=== PATIENT | female | born 1985 | race Hispanic/Latino ===

== ENCOUNTER 2017-10-04 14:15 | Outpatient (CLI) | payer BC ==
[2017-10-04 15:15] LABS: Hematocrit 41.3 % (36.0-47.0); Mean Platelet Volume 8.2 fL (7.4-10.4); White Blood Cell (WBC) Count 11.5 thou/uL (4.8-10.8)
== END 2017-10-04 14:16 | disposition home or self-care (01) ==
LOC: LABBT 14:15
PROVIDERS: ATTEND Obstetrics & Gynecology
DX: Z01.812 Encounter for preprocedural laboratory examination (principal); K80.20 Calculus of gallbladder without cholecystitis without obstruction
CPT/HCPCS: 84703; 85027; 86850; 86900; 86901

== ENCOUNTER 2017-10-04 15:30 | Inpatient (IN) | payer BC ==
--- NOTE | 2017-10-03 16:26 | HP ---
PRESENTING COMPLAINT: Chronic pelvic pain, deep dyspareunia with moderate pelvic prolapse. SCHEDULED PROCEDURE: Total laparoscopic hysterectomy, bilateral salpingectomy. HISTORY OF PRESENT ILLNESS: Ms. Hurley is a 32-year-old 2, para 2, status post x2, wh o was on Mirena. The patient has persistent dysmenorrhea and abdominal pain. She also has significa nt dyspareunia which is deep. She desires definitive surgical management. OBSTETRIC AND GYNECOLOGIC HISTORY: Noted, negative Pap smear in June. PAST MEDICAL HISTORY: Denies. PAST SURGICAL HISTORY: None. ALLERGIES: Denies. MEDICATIONS: None. SOCIAL HISTORY: Denies tobacco, alcohol, IV drug abuse. FAMILY HISTORY: Significant for history of malignant neoplasm of the ovary and uterus in the patient 's mother. PHYSICAL EXAMINATION: GENERAL: female, 5 foot 6, 233, BMI 37. VITAL SIGNS: Blood pressure 130/80. HEENT: Within normal limits. LUNGS: Clear to auscultation bilaterally. HEART: Regular rhythm. BREASTS: No masses bilaterally. ABDOMEN: Soft and nontender, without rebound or guarding. PELVIC: Vulva without lesions. Vagina without discharge. Cervix is approximately 2.5 cm from the i ntroitus. Uterus is anteverted, tender on exam without adnexal masses bilaterally, IUD in situ. EXTREMITIES: Without clubbing, cyanosis, or edema. LABORATORY DATA: Pap smear within normal limits, negative, high risk HPV. IMPRESSION: Chronic pelvic pain, dysfunctional uterine bleeding, desires definitive surgical managem ent. We will proceed with TLH, bilateral salpingectomy with da Jatin robot with appropriate antibiot ic and DVT prophylaxis.
[2017-10-04 14:37] VITALS: BMI 36.8
[2017-10-05] MEDS ORDERED: CEFAZOLIN/Water 2 GM/20 ML SYRINGE ONE (08:20)
[2017-10-05] MEDS ORDERED: Midazolam HCl 2 mg/2 ml Vial ONE ×2 (09:21→09:33)
[2017-10-05] MEDS ORDERED: HYDROmorphone 0.5 MG/0.5 ML SYRINGE ONE (09:33)
[2017-10-05] MEDS ORDERED: Fentanyl 100 MCG/2 ML VIAL ONE ×4 (09:33→12:13)
[2017-10-05] MEDS ORDERED: Bupivacaine/Epinephrine 0.25% 30 ML VIAL ONE (09:35)
[2017-10-05] MEDS ORDERED: Promethazine HCl 25 MG/ML VIAL SLOW IVP PRN (11:15)
[2017-10-05] MEDS ORDERED: HYDROmorphone 2 MG/ML VIAL SLOW IVP PRN (11:15)
[2017-10-05] MEDS ORDERED: Ondansetron HCl/PF 4 MG/2 ML Vial IVP PRN ×2 (11:15→13:46)
[2017-10-05] MEDS ORDERED: Promethazine HCl 25 MG/ML VIAL IM PRN ×2 (11:15→13:46)
[2017-10-05] MEDS ORDERED: Ketorolac Tromethamine 30 MG/ML VIAL ONE (11:36)
[2017-10-05] MEDS ORDERED: MORPHINE 10 MG/ML SYRINGE SLOW IVP PRN (13:46)
[2017-10-05] MEDS ORDERED: Zolpidem Tartrate 5 MG TAB PO PRN (13:46)
[2017-10-05] MEDS ORDERED: diphenhydrAMINE 25 MG CAP PO PRN (13:46)
[2017-10-05] MEDS ORDERED: Simethicone Chewable 80 MG TAB PO PRN (13:46)
[2017-10-05] MEDS ORDERED: Morphine PF 1 MG/ML SYR IVP PRN (13:46)
[2017-10-05] MEDS ORDERED: Propofol 200 MG/20 ML VIAL ONE (14:36)
[2017-10-05] MEDS ORDERED: Lidocaine 1% PF 5 ML VIAL ONE (14:36)
[2017-10-05] MEDS ORDERED: Ondansetron HCl/PF 4 MG/2 ML Vial ONE (14:36)
[2017-10-05] MEDS ORDERED: Glycopyrrolate 0.2 MG/ML 5 ML SYRINGE ONE (14:36)
[2017-10-05] MEDS ORDERED: PHENYLEPHRINE-NS 100 MCG/ML 10 ML SYRINGE ONE (14:36)
[2017-10-05] MEDS ORDERED: Dexamethasone 20 MG/5 ML VIAL ONE (14:36)
--- NOTE | 2017-10-05 15:13 | OP ---
DATE OF PROCEDURE: 10/05/2017 PREOPERATIVE DIAGNOSES: IUD in situ, chronic pelvic pain, dysmenorrhea, dyspareunia, and desires def initive surgical management. POSTOPERATIVE DIAGNOSES: IUD in situ, chronic pelvic pain, dysmenorrhea, dyspareunia, and desires de finitive surgical management. PROCEDURE: Total laparoscopic hysterectomy, bilateral salpingo-oophorectomy. SURGEON: Felipe Mathis M.D. TUNNEL INSPECTOR: Teo Melendez D.O. ESTIMATED BLOOD LOSS: 50 mL. MEDICATIONS: Two grams Ancef preincision. DVT PROPHYLAXIS: SCDs. ANESTHESIA: General endotracheal. DRAINS: Li to gravity. Approximately 100 mL of clear urine. OPERATIVE FINDINGS: 1. Approximately 6-week size uterus, probable adenomyosis, otherwise grossly normal. 2. Normal appearing tubes and ovaries bilaterally. 3. Intrauterine device in situ at the beginning of procedure removed, not sent for pathology. 4. Hemostasis with clear urine. 5. Counts correct at the end of the procedure. DISPOSITION: Recovery in good condition. DESCRIPTION OF OPERATIVE PROCEDURE: After obtaining proper informed consent, the patient was taken t o the operating room where general endotracheal anesthesia was achieved without difficulty. The [place] ent prepped and draped in dorsal lithotomy position in Levi stirrups. Weighted speculum placed in v [facility]. The cervix was identified and grasped with single-toothed tenaculum at 12:[address] ring was grasped and removed without difficulty, noted to be intact. The uterus sounded to 8 cm and the ANISH manipulator with a 4 cm vaginal pain management nurse and a 6 cm obturator was placed without difficult y. Speculum and tenaculum removed. Gear Shaper Set Up Operator changed his gloves and turned his attention to the abdo joel portion of procedure. 5 mL of Marcaine injected at the superior aspect at the umbilicus and Ve ress needle placed inside abdominal cavity. Confirmation of entry into the peritoneal cavity via eddie ine drop test. Insufflation carried out with carbon dioxide to a max pressure of 15, approximately 3 .5 liters. After this was done, a 12 mm noncutting trocar was placed and confirmation of entry into the peritoneal cavity without trauma to underlying vessels was noted. The patient was placed in stee p Trendelenburg and right and left lateral 8 mm da Jatin ports were placed lateral to the epigastric and an 11 mm it administrative assistant port in the right upper quadrant. Da Jatin robot was docked with monopolar sc issors in the right hand and bipolar fenestrated forceps in the left, pelvic survey was carried out. Adnexa was mobilized on the patient's right, the mesosalpinx was coagulated and transected and the f allopian tube removed intact. After this was done, the uteroovarian was coagulated to the broad, the round, and down to the level of the internal cervical os. Vesicouterine peritoneum fold was incised sharply, starting on the left and extending all the way over to the right, dissecting the bladder of f the lower uterine segment, cervix and upper vagina. Skeletonization of the uterine vessels on the patient's left was carried out and these were coagulated and transected. Attention was turned to the right where again the fallopian tube was removed and to the uteroovarian, the broad and the round, a nd down to the level of the vessels. Skeletonization of the uterine vessels carried out coagulation and transection, posteriorly the peritoneum incised from 6-9 and from 6 to 3 o'clock. Anteriorly, a multilayer dissection was carried down at the level of the interface between the cervix and upper vag travis entering the vagina at 12 o'clock and extending from 12-3 and 12-9, then from 6 to 3 and 6 to 9, coagulating and transecting vessels as they were encountered. Once this was done, the specimen was p ulled in the vagina to maintain pneumoperitoneum. Suction irrigation was carried out and good hemost asis rendered. Stratafix suture was used to close the vagina in a running continuous manner. This w as done in a 2 layer closure. Good hemostasis was noted. The bladder was backfilled and noted to be away from the suture and closure line. Nolberto was applied across the raw surfaces. Good hemostasis noted. The abdomen desufflated of carbon dioxide after removing the da Jatin instruments and undock ing the da Jatin trocars removed x4. Fascia reapproximated at the umbilical trocar site using a UR 5 -0 Vicryl suture and skin reapproximated x4 using 4-0 Monocryl and Dermabond. The specimen was remov ed from the vagina, the vagina inspected and noted to be dry. Li catheter noted to have clear uri ne. The patient was awakened, extubated, and taken to the recovery room in good condition.
[2017-10-05] MEDS: Ketorolac Tromethamine 30 MG/ML VIAL IVP SCH ×2 (15:30→18:00)
[2017-10-05] MEDS: Sodium Chloride 0.9% 1,000 ML IV SCH ×2 (15:31→23:22)
[2017-10-06] MEDS: Ketorolac Tromethamine 30 MG/ML VIAL IVP SCH ×2 (00:11→06:05)
[2017-10-06 01:07] VITALS: TEMP 97.8
[2017-10-06 05:55] LABS: Hematocrit 35.5 % (36.0-47.0); Mean Platelet Volume 8.9 fL (7.4-10.4); Red Blood Cell (RBC) Count 3.71 mill/uL (4.20-5.40); White Blood Cell (WBC) Count 14.7 thou/uL (4.8-10.8)
[2017-10-06] MEDS ORDERED: Sodium Chloride 0.9% 10 ML ONE (05:58)
[2017-10-06] MEDS: Sodium Chloride 0.9% 1,000 ML IV SCH (06:02)
[2017-10-06 08:30] VITALS: BP 96/53
--- NOTE | 2017-10-06 12:09 | DIS ---
DATE OF ADMISSION: 10/05/2017 DATE OF DISCHARGE: 10/06/2017 PROCEDURES PERFORMED: Total laparoscopic hysterectomy and bilateral salpingectomy. SUMMARY OF HOSPITAL COURSE: Ms. Hurley was admitted and underwent a TLH, bilateral salpingectomy on 10/05. She had 50 mL EBL, postoperative hematocrit was 35%. Exam on postoperative day #1 reveals that temperature was 97.8, pulse 80, respirations 18, blood pressure 106/60, the patient has greater than 1500 mL urine output. She is voiding with ease and has no complaints. PHYSICAL EXAMINATION: LUNGS: Clear to auscultation bilaterally. HEART: Regular rhythm. ABDOMEN: Soft and nontender. Incisions are intact, dry and without erythema. Perineum is dry. EXTREMITIES: Without clubbing, cyanosis or edema. IMPRESSION: Doing well, status post total laparoscopic hysterectomy and bilateral salpingectomy. PLAN: Discharge home, [place] prescription will be sent out electronically from my office and will see the patient back in 4-6 weeks for postoperative followup.
== END 2017-10-06 10:05 | disposition home or self-care (01) | DRG 743 ==
LOC: SURG A 10-05 08:01 → 3SW 10-05 13:00
PROVIDERS: ADMIT Obstetrics & Gynecology; ATTEND Obstetrics & Gynecology
PROC: 0UT94ZZ Resection of Uterus, Percutaneous Endoscopic Approach (ICD-10-PCS; principal; 2017-10-05)
PROC: 0UTC4ZZ Resection of Cervix, Percutaneous Endoscopic Approach (ICD-10-PCS; 2017-10-05)
PROC: 0UT74ZZ Resection of Bilateral Fallopian Tubes, Percutaneous Endoscopic Approach (ICD-10-PCS; 2017-10-05)
PROC: 8E0W4CZ Robotic Assisted Procedure of Trunk Region, Percutaneous Endoscopic Approach (ICD-10-PCS; 2017-10-05)
PROC: 0UPD7HZ Removal of Contraceptive Device from Uterus and Cervix, Via Natural or Artificial Opening (ICD-10-PCS; 2017-10-05)
DX: N93.8 Other specified abnormal uterine and vaginal bleeding (principal); E66.9 Obesity, unspecified; N94.12 Deep dyspareunia; N80.0 Endometriosis of uterus; Z97.5 Presence of (intrauterine) contraceptive device; Z68.36 Body mass index [BMI] 36.0-36.9, adult; Z80.49 Family history of malignant neoplasm of other genital organs; Z80.41 Family history of malignant neoplasm of ovary
CPT/HCPCS: 36415; 85027; 88307; A4216; J0131; J1100; J1170; J1885; J2001; J2250; J2405; J2704; J3010